=== PATIENT | female | born 1945 | race Caucasian/White ===

== ENCOUNTER 2019-06-02 13:09 | Day surgery (SDC) | payer MEDICARE, BC ==
[~2019-06-02] VITALS: Ht 157.5 cm; Wt 62.3 kg
[2019-06-02 13:39] VITALS: BP 196/87
[2019-06-02] MEDS ORDERED: APIX5TAB3 PO (13:49)
[2019-06-02] MEDS ORDERED: METO50TA17 PO (13:49)
[2019-06-02] MEDS ORDERED: LOVA20TA2 PO (13:49)
[2019-06-02] MEDS ORDERED: AZIT500T5 PO (13:49)
[2019-06-02] MEDS ORDERED: GABA-530 PO (13:49)
[2019-06-02] MEDS ORDERED: FLEC50TA PO (13:49)
[2019-06-02] MEDS ORDERED: normal saline 1,000 ML IV SCH (14:10)
[2019-06-02] MEDS ORDERED: vancomycin/NS 1 GM ADD-VANTAGE 250 ML X 1 DOSE IV ONE (14:15)
[2019-06-02 14:16] LABS: BASOPHILS # (AUTO) 0.1 X10'3 (0-0.2); BASOPHILS % (AUTO) 1.4 % (0-1); EOSINOPHILS # (AUTO) 0.1 X10'3 (0-0.9); EOSINOPHILS % (AUTO) 1.6 % (0-6); HEMATOCRIT 44.7 % (35.0-45.0); HEMOGLOBIN 15.2 g/dl (12.0-16.0); LYMPHOCYTES # (AUTO) 1.9 X10'3 (1.1-4.8); LYMPHOCYTES % (AUTO) 23.1 % (21-51); MEAN CORPUSCULAR HEMOGLOBIN 32.2 PG (27.0-31.0); MEAN CORPUSCULAR HGB CONC 34.1 g/dL (33.0-36.5); MEAN CORPUSCULAR VOLUME 94.3 FL (78-98); MEAN PLATELET VOLUME 7.6 FL (7.4-10.4); MONOCYTES # (AUTO) 0.7 X10'3 (0-0.9); MONOCYTES % (AUTO) 8.8 % (2-12); NEUTROPHILS # (AUTO) 5.3 X10'3 (1.8-7.7); NEUTROPHILS % (AUTO) 65.1 % (42-75); PLATELET COUNT 293 X10'3 (140-440); RED BLOOD COUNT 4.74 X10'6 (4.20-5.60); RED CELL DISTRIBUTION WIDTH 14.8 % (11.5-14.5); WHITE BLOOD COUNT 8.1 X10'3 (4.5-11.0)
[2019-06-02 14:32] LABS: ALBUMIN 4.3 G/DL (3.4-5.0); ANION GAP 7 (8-16); BLOOD UREA NITROGEN 12 MG/DL (7-18); BUN/CREATININE RATIO 13.8 (6.6-38.0); CALCIUM 9.8 MG/DL (8.5-10.1); CHLORIDE 100 MMOL/L (99-107); CREATININE 0.87 MG/DL (0.40-0.90); GLUCOSE 90 MG/DL (70-104); POTASSIUM 4.1 MMOL/L (3.5-5.1); SODIUM 135 MMOL/L (135-145); TOTAL CARBON DIOXIDE 27.8 MMOL/L (24-32); eGFR 63 ML/MIN
[2019-06-02] MEDS ORDERED: vancomycin 1,000mg inj ONE ×2 (15:09→15:33)
[2019-06-02] MEDS ORDERED: LIDOcaine 1% (10mg/ml)w/preservative injection 20ml MDV ONE (15:09)
[2019-06-02] MEDS ORDERED: fentaNYL/PF 50MCG/1 ML 2ML syringe ONE (15:09)
[2019-06-02] MEDS ORDERED: midazolam 2 mg/2 ml injection ONE ×2 (15:09→15:51)
[2019-06-02] MEDS ORDERED: ceFAZolin 1GM/D5W- ADD-VANTAGE 100 ML IV ONE (15:11)
[2019-06-02 16:27] VITALS: BP 141/68
[2019-06-02 16:42] VITALS: BP 130/60
[2019-06-02 17:12] VITALS: BP 135/52
== END 2019-06-02 17:45 | disposition home or self-care (01) ==
LOC: SSTAY O 13:09
PROVIDERS: ATTEND Internal Medicine Cardiovascular Disease
DX: T82.897A Other specified complication of cardiac prosthetic devices, implants and grafts, initial encounter (principal); I45.5 Other specified heart block; I49.5 Sick sinus syndrome; Y83.8 Other surgical procedures as the cause of abnormal reaction of the patient, or of later complication, without mention of misadventure at the time of the procedure; I48.91 Unspecified atrial fibrillation; I10 Essential (primary) hypertension; Z79.899 Other long term (current) drug therapy; Z88.1 Allergy status to other antibiotic agents; Z88.6 Allergy status to analgesic agent; Z90.710 Acquired absence of both cervix and uterus; Z95.0 Presence of cardiac pacemaker; Z98.890 Other specified postprocedural states
CPT/HCPCS: 33222; 36415; 80048; 83735; 85025; 85610; 93005; 99152; 99153; J0690; J2001; J2250; J3010; J3370; J7030; J7050; A4620

== ENCOUNTER 2020-05-07 22:40 | Emergency (ER) | payer MEDICARE, BC ==
[~2020-05-07] VITALS: Ht 157.5 cm; Wt 60.9 kg
[~2020-05-07 22:40] MED LIST: APIX5TAB3 PO; AZIT500T9 PO; FLEC50TA PO; GABA-530 PO; LOVA20TA2 PO; METO50TA17 PO
[2020-05-07 23:42] LABS: BASOPHILS # (AUTO) 0.1 X10'3 (0-0.2); BASOPHILS % (AUTO) 0.8 % (0-1); EOSINOPHILS # (AUTO) 0.2 X10'3 (0-0.9); EOSINOPHILS % (AUTO) 2.7 % (0-6); HEMOGLOBIN 13.4 g/dl (12.0-16.0); LYMPHOCYTES # (AUTO) 1.9 X10'3 (1.1-4.8); LYMPHOCYTES % (AUTO) 28.4 % (21-51); MEAN CORPUSCULAR HEMOGLOBIN 32.5 PG (27.0-31.0); MEAN CORPUSCULAR HGB CONC 33.5 g/dL (33.0-36.5); MEAN CORPUSCULAR VOLUME 97.2 FL (78-98); MEAN PLATELET VOLUME 7.7 FL (7.4-10.4); MONOCYTES # (AUTO) 0.5 X10'3 (0-0.9); MONOCYTES % (AUTO) 7.3 % (2-12); NEUTROPHILS # (AUTO) 4.2 X10'3 (1.8-7.7); NEUTROPHILS % (AUTO) 60.8 % (42-75); PLATELET COUNT 223 X10'3 (140-440); RED BLOOD COUNT 4.12 X10'6 (4.20-5.60); RED CELL DISTRIBUTION WIDTH 13.6 % (11.5-14.5); WHITE BLOOD COUNT 6.8 X10'3 (4.5-11.0)
[2020-05-07] MEDS ORDERED: METO25TA6 PO (23:55)
[2020-05-07] MEDS ORDERED: OLME40TA18 PO (23:58)
[2020-05-08 00:10] LABS: ALANINE AMINOTRANSFERASE 82 U/L (12-78); ALBUMIN 3.7 G/DL (3.4-5.0); ALBUMIN/GLOBULIN RATIO 1.1 (1.1-1.5); ALKALINE PHOSPHATASE 136 IU/L (46-116); ANION GAP 7 (8-16); ASPARTATE AMINO TRANSFERASE 66 U/L (10-37); BILIRUBIN,TOTAL 0.3 MG/DL (0.1-1.0); BLOOD UREA NITROGEN 19 MG/DL (7-18); CALCIUM 9.1 MG/DL (8.5-10.1); CHLORIDE 105 MMOL/L (99-107); CREATININE 1.19 MG/DL (0.40-0.90); GLUCOSE 130 MG/DL (70-104); POTASSIUM 3.9 MMOL/L (3.5-5.1); SODIUM 140 MMOL/L (135-145); TOTAL CARBON DIOXIDE 28.2 MMOL/L (24-32); TOTAL PROTEIN 7.1 G/DL (6.4-8.2); eGFR 44 ML/MIN
--- NOTE | 2020-05-08 00:27 | NUR ---
Pacemaker interrogated per MD order.
[2020-05-08] MEDS ORDERED: metoprolol tartrate 1mg/ml inj IV ONE (00:40)
--- NOTE | 2020-05-08 00:46 | NUR ---
pt heart rate converted before administration of metoprolol 5 mg IV
[2020-05-08 01:41] VITALS: BP 124/76
== END 2020-05-08 01:42 | disposition home or self-care (01) ==
LOC: ER 22:41
DX: I48.92 Unspecified atrial flutter (principal); I48.91 Unspecified atrial fibrillation; Z95.0 Presence of cardiac pacemaker; Z88.5 Allergy status to narcotic agent; Z88.8 Allergy status to other drugs, medicaments and biological substances; Z79.01 Long term (current) use of anticoagulants; Z79.899 Other long term (current) drug therapy
CPT/HCPCS: 36415; 71045; 80053; 84484; 85025; 85610; 93005; 99285

== ENCOUNTER 2022-06-02 13:24 | Day surgery (SDC) | payer MEDICARE, BC ==
[~2022-06-02 13:24] MED LIST changes: -AZIT500T9 PO; +LOP25T PO; +OLME40TA18 PO
[2022-06-02] MEDS ORDERED: [UNRECOGNIZED DRUG - OTHER] PO (14:45)
[2022-06-02] MEDS ORDERED: AMLO2.5T2 PO (14:45)
[2022-06-02] MEDS ORDERED: CYAN1TAB41 PO (14:45)
[2022-06-02] MEDS ORDERED: CALC-336 PO (14:55)
[2022-06-02] MEDS ORDERED: ZINC50TA67 PO (14:55)
[2022-06-02] MEDS ORDERED: ESOM20CA PO (14:55)
[2022-06-02 15:45] LABS: BASOPHILS # (AUTO) 0.1 X10'3 (0-0.2); EOSINOPHILS # (AUTO) 0.1 X10'3 (0-0.9); EOSINOPHILS % (AUTO) 2.6 % (0-6); LYMPHOCYTES # (AUTO) 1.5 X10'3 (1.1-4.8); LYMPHOCYTES % (AUTO) 27.8 % (21-51); MEAN CORPUSCULAR HEMOGLOBIN 31.8 PG (27.0-31.0); MEAN CORPUSCULAR HGB CONC 33.6 g/dL (33.0-36.5); MEAN CORPUSCULAR VOLUME 94.8 FL (78-98); MEAN PLATELET VOLUME 7.7 FL (7.4-10.4); MONOCYTES # (AUTO) 0.5 X10'3 (0-0.9); MONOCYTES % (AUTO) 9.9 % (2-12); NEUTROPHILS # (AUTO) 3.1 X10'3 (1.8-7.7); NEUTROPHILS % (AUTO) 58.7 % (42-75); PRE OP HEMATOCRIT 41.4 % (35.0-45.0); PRE OP HEMOGLOBIN 13.9 g/dL (12.0-16.0); PRE OP PLATELET COUNT 229 X10'3 (140-440); RED BLOOD COUNT 4.37 X10'6 (4.20-5.60); RED CELL DISTRIBUTION WIDTH 14.3 % (11.5-14.5)
[2022-06-02 16:01] LABS: ALBUMIN 3.8 G/DL (3.4-5.0); ALKALINE PHOSPHATASE 114 IU/L (46-116); BLOOD UREA NITROGEN 18 MG/DL (7-18); CALCIUM 9.1 MG/DL (8.5-10.1); CHLORIDE 104 MMOL/L (99-107); CREATININE 0.75 MG/DL (0.40-0.90); PRE OP ALT 27 U/L (30-65); PRE OP ANION GAP 4 (8-16); PRE OP AST 23 U/L (10-37); PRE OP BILIRUB, TOTAL 0.3 MG/DL (0.0-1.0); PRE OP GLUCOSE 89 MG/DL (70-104); PRE OP SODIUM 137 MMOL/L (135-145); TOTAL CARBON DIOXIDE 29.1 MMOL/L (24-32); TOTAL PROTEIN 7.6 G/DL (6.4-8.2); eGFR 75 ML/MIN
== END 2022-06-02 23:59 | disposition home or self-care (01) ==
LOC: PRE-OP 13:24
PROVIDERS: ATTEND Orthopaedic Surgery Hand Surgery
DX: Z01.818 Encounter for other preprocedural examination (principal); M67.431 Ganglion, right wrist; G56.03 Carpal tunnel syndrome, bilateral upper limbs; Z88.1 Allergy status to other antibiotic agents; Z88.6 Allergy status to analgesic agent; Z88.8 Allergy status to other drugs, medicaments and biological substances
CPT/HCPCS: 36415; 80053; 85025; 93005

== ENCOUNTER 2022-10-26 12:52 | Emergency (ER) | payer MEDICARE, BC ==
[~2022-10-26] VITALS: Ht 154.9 cm; Wt 63.6 kg
[~2022-10-26 12:52] MED LIST changes: +AMLO2.5T2 PO; +CALC-336 PO; +CYAN1TAB41 PO; +ESOM20CA PO; -GABA-530 PO; -LOP25T PO; +ZINC50TA67 PO; +[UNRECOGNIZED DRUG - OTHER] PO
[2022-10-26 16:59] VITALS: BP 159/71
--- NOTE | 2022-10-26 17:11 | NUR ---
CHARGE NURSE NOTIFIED OF TRAUMA ASSESSMENT. CHARGE NURSE INFORMED OF RN SPECIFIC ASSESSMENTS NEEDED.
== END 2022-10-26 17:38 | disposition home or self-care (01) ==
LOC: ER 12:52
DX: M25.512 Pain in left shoulder (principal); I51.9 Heart disease, unspecified; Z88.0 Allergy status to penicillin; Z88.1 Allergy status to other antibiotic agents; Z88.5 Allergy status to narcotic agent; Z79.899 Other long term (current) drug therapy; W01.0XXA Fall on same level from slipping, tripping and stumbling without subsequent striking against object, initial encounter; Y93.89 Activity, other specified; Y92.89 Other specified places as the place of occurrence of the external cause; Y99.8 Other external cause status; S19.9XXA Unspecified injury of neck, initial encounter
CPT/HCPCS: 70450; 72125; 73030; 99284; A4565

== ENCOUNTER 2023-03-05 08:00 | Day surgery (SDC) | payer MEDICARE, BC ==
--- NOTE | 2023-03-05 08:20 | NUR ---
EKG shows pt is 100% AV paced. Phoned Dr. Sewell and gave him an update, Dr. Sewell reviewed EKG and procedure was cancelled. Pt encouraged to see Dr. Gusman to follow up.
[2023-03-05] MEDS ORDERED: normal saline 1000ml 1,000 ML IV SCH (08:30)
[2023-03-05] MEDS ORDERED: fentaNYL/PF 50MCG/1 ML 2ML syringe IV ONE (08:30)
[2023-03-05] MEDS ORDERED: MIDAZolam 1mg/ml 10ml vial IV ONE (08:30)
== END 2023-03-05 08:40 | disposition home or self-care (01) ==
LOC: SSTAY O 08:00
PROVIDERS: ATTEND Internal Medicine Cardiovascular Disease
DX: I48.0 Paroxysmal atrial fibrillation (principal); Z53.8 Procedure and treatment not carried out for other reasons; I47.1 Supraventricular tachycardia; I49.5 Sick sinus syndrome; I10 Essential (primary) hypertension; E78.5 Hyperlipidemia, unspecified; Z95.0 Presence of cardiac pacemaker; Z79.01 Long term (current) use of anticoagulants; Z79.899 Other long term (current) drug therapy; Z90.710 Acquired absence of both cervix and uterus; Z98.890 Other specified postprocedural states; Z87.891 Personal history of nicotine dependence; Z88.1 Allergy status to other antibiotic agents; Z88.2 Allergy status to sulfonamides; Z88.5 Allergy status to narcotic agent
CPT/HCPCS: 93005; A4620; J7030